=== PATIENT | female | born 1975 | race Caucasian/White ===

== ENCOUNTER 2018-01-29 00:29 | Inpatient (IN) | payer MEDICAID ==
[~2018-01-29] VITALS: Ht 165.1 cm; Wt 101.6 kg
[~2018-01-29 00:29] MED LIST: CALC500T31 PO; FERR-212 PO; PREN-385 PO
[2018-01-29 00:33] VITALS: BP 176/109
--- NOTE | 2018-01-29 00:38 | NUR ---
BIB DAUGHTER, PT PRESENTS TO ED WITH N/V WITH BURNING CHEST PAIN X3 HRS. PT STATES WAKING UP WITH EPIGASTRIC PAIN. TOOK PEPTO BISMOL AND DID NOT FIND RELIEF. VSS UPON ED ARRIVAL. HR EVEN AND REGULAR. NSR AT 65. POSITIONED IN BED WITH HOB ELEVATED. SIDE RAIL UP. ER MD AWARE. CONTINUE TO MONITOR.
--- NOTE | 2018-01-29 00:38 | NUR ---
PT AMBULATED TO BED 07
--- NOTE | 2018-01-29 00:40 | NUR ---
DR CABRAL AT BEDSIDE FOR EVALUATION.
[2018-01-29] MEDS ORDERED: NACL 0.9% 500 ML IV ONE (00:42)
[2018-01-29] MEDS ORDERED: KETOROLAC 30 MG/ML VIAL IVP ONE (00:45)
[2018-01-29] MEDS ORDERED: ONDANSETRON 4 MG/2 ML VIAL IVP ONE (00:45)
[2018-01-29 01:24] LABS: BASOPHILS % (AUTO) 0.3 % (0.0-2.0); EOSINOPHILS # (AUTO) 0.4 K/uL (0-0.4); HEMOGLOBIN 13.3 g/dL (12.0-16.0); LYMPHOCYTES # (AUTO) 3.2 K/uL (2.5-16.5); LYMPHOCYTES % (AUTO) 22.7 % (20.5-51.1); MEAN CORPUSCULAR HEMOGLOBIN 29 pg (27-31); MEAN CORPUSCULAR HGB CONC 33 g/dL (33-37); MEAN CORPUSCULAR VOLUME 88.2 fL (80-94); MONOCYTES % (AUTO) 7.1 % (1.7-9.3); NEUTROPHILS # (AUTO) 9.4 K/uL (1.8-7.7); NEUTROPHILS % (AUTO) 66.9 % (42.2-75.2); PLATELET COUNT (AUTO) 299 K/uL (140-450); RED BLOOD CELL COUNT(AUTO) 4.53 MIL/uL (4.20-5.40)
[2018-01-29 01:33] LABS: ANION GAP 14.4 (8-16); CARBON DIOXIDE 25.4 mmol/L (21-32); CREATININE 0.8 mg/dL (0.6-1.3); POTASSIUM 3.8 mmol/L (3.5-5.1)
--- NOTE | 2018-01-29 01:34 | NUR ---
PT STATES 8/10 PAIN. PAIN UNCHANGED AT THIS TIME. DR CABRAL NOTIFIED. VSS. CONTINUE TO MONITOR.
[2018-01-29 01:39] LABS: ALBUMIN 3.6 g/dL (3.4-5.0); TOTAL BILIRUBIN 0.2 mg/dL (0.0-1.0)
[2018-01-29] MEDS ORDERED: MORPHINE SULFATE 2 MG/ML SYR IVP ONE (02:00)
[2018-01-29] MEDS ORDERED: MORPHINE SULFATE 2 MG/ML SYR IVP PRN (02:05)
[2018-01-29] MEDS ORDERED: ACETAMINOPHEN 325 MG TAB PO PRN (02:05)
[2018-01-29] MEDS ORDERED: DOCUSATE SODIUM 100 MG GELCAP PO PRN (02:05)
[2018-01-29] MEDS ORDERED: ONDANSETRON 4 MG/2 ML VIAL IM/IVP PRN (02:05)
[2018-01-29] MEDS ORDERED: HYDROcodone/APAP 7.5/325 MG 1 TAB PO PRN (02:05)
[2018-01-29] MEDS ORDERED: MORPHINE SULFATE 4 MG/ML SYR ONE (02:08)
--- NOTE | 2018-01-29 02:22 | NUR ---
PT IN BED WITH VSS. POSITIONED FOR COMFORT. FAMILY AT BEDSIDE. CONTINUE TO MONITOR.
[2018-01-29 02:27] LABS: APPEARANCE,URINE SLIGHTLY HAZY (CLEAR); BLOOD, URINE TRACE (NEGATIVE); COLOR,URINE YELLOW (YELLOW); UGLUCOSE NEGATIVE (NEGATIVE)
[2018-01-29 02:28] LABS: BILIRUBIN,URINE NEGATIVE (NEGATIVE); LEUKOCYTE ESTERASE ,URINE NEGATIVE (NEGATIVE); NITRITE, URINE NEGATIVE (NEGATIVE)
[2018-01-29 02:30] LABS: PROTHROMBIN TIME 9.7 secs (10.8-13.4)
[2018-01-29 02:37] LABS: BARBITURATE, URINE NEG. ng/ml (NEG <=200); BENZODIAZEPINE, URINE NEG. ng/mL (NEG <=200); CANNABINOID, URINE NEG. ng/mL (NEG <=50); COCAINE, URINE NEG. ng/mL (NEG <=300); OPIATE, URINE NEG. ng/mL (NEG <=2000); PHENCYCLIDINE SCREEN,URINE NEG. ng/mL (NEG <=25)
[2018-01-29 02:40] LABS: RBC,URINE 3-10 (FEW) /HPF (0-5); WBC,URINE 0-5 (RARE) /HPF (0-5)
[2018-01-29 02:42] LABS: CHOL/HDL RATIO 4.8 (1-4.5); FREE T4 (FREE THYROXINE) 1.03 ng/dL (0.76-1.46); MAGNESIUM 1.9 mg/dL (1.8-2.4); PHOSPHORUS 2.5 mg/dL (2.5-4.9); THYROID STIMULATING HORMONE 2.66 uIU/mL (0.34-3.74)
[2018-01-29] MEDS ORDERED: DEXT 5% / NACL 0.45% 1,000 ML IV SCH (03:30)
--- NOTE | 2018-01-29 03:52 | NUR ---
REPORT GIVEN AND CARE TRANSFERED TO [facility] RN ROOM 104A. TRANSPORTED VIA GURNEY WITH VSS.
[2018-01-29 04:00] VITALS: BP 128/80
--- NOTE | 2018-01-29 04:00 | NUR ---
RECEIVED REPORT FROM [facility], FOR CONTINUITY OF CARE. PT ARRIVED IN [facility] AND AMBULATED FROM HALLWAY TO RESTROOM THEN BED WITH STEADY GAIT. PT IS A/OX4, ON ROOM AIR AND PRIMARILY USES FRISIAN. PT IS ABLE TO MAKE NEEDS KNOWN, ABLE TO FOLLOW COMMANDS. PT BREATHS EQUAL AND UNLABORED. PT SKIN IS INTACT. PT HAS A 20G IV TO LEFT AC, ASYMPTOMATIC AND INTACT. DISCUSSED PLAN OF CARE WITH PT, PT VERBALIZED UNDERSTANDING. OBTAINED MRSA SWAB AND SENT TO LAB. VITAL SIGNS WITHIN NORMAL LIMITS. PT STABLE, NO SIGNS OF DISTRESS NOTED AT THIS TIME. BED IN LOWEST POSITION, BED ALARM ON. CALL LIGHT WITHIN REACH, WILL CONTINUE TO MONITOR.
[2018-01-29] MEDS ORDERED: cefTRIAXone 1,000 MG VIAL ONE (04:24)
[2018-01-29] MEDS: metroNIDAZOLE 500 MG/NS PREMIX 100 ML IV SCH ×3 (04:29→22:12)
[2018-01-29] MEDS ORDERED: PNEUMOCOCCAL VACCINE 23 MCG/0.5 ML VIAL IMVAC SCH (05:10)
--- NOTE | 2018-01-29 05:30 | NUR ---
PT TOLERATED ROCEPHIN AND FLAGYL WELL, NO SIGNS/SYMPTOMS OF ALLERGIC REACTION.
--- NOTE | 2018-01-29 07:18 | NUR ---
ENDORSED P TO DAY SHIFT RN CHELO FOR CONTINUITY OF CARE, PT IN STABLE CONDITION.
--- NOTE | 2018-01-29 07:19 | NUR ---
RECEIVED BEDSIDE REPORT FROM PM SHIFT NURSE. PT ASLEEP, AROUSABLE BY AUDITORY STIMULI. DENIES ANY PAIN AT THIS TIME. CALL LIGHT WITHIN REACH.
[2018-01-29 08:00] VITALS: BP 112/79
[2018-01-29 08:13] LABS: BASOPHILS # (AUTO) 0.2 K/uL (0.00-0.22); BASOPHILS % (AUTO) 1.2 % (0.0-2.0); EOSINOPHILS # (AUTO) 0.4 K/uL (0-0.4); HEMATOCRIT 38.6 % (36-48); HEMOGLOBIN 12.8 g/dL (12.0-16.0); LYMPHOCYTES # (AUTO) 3.4 K/uL (2.5-16.5); LYMPHOCYTES % (AUTO) 26.2 % (20.5-51.1); MEAN CORPUSCULAR HEMOGLOBIN 29 pg (27-31); MEAN CORPUSCULAR HGB CONC 33 g/dL (33-37); MEAN CORPUSCULAR VOLUME 88.4 fL (80-94); MONOCYTES # (AUTO) 0.7 K/uL (0.8-1.0); MONOCYTES % (AUTO) 5.4 % (1.7-9.3); NEUTROPHILS # (AUTO) 8.3 K/uL (1.8-7.7); NEUTROPHILS % (AUTO) 64.2 % (42.2-75.2); PLATELET COUNT (AUTO) 280 K/uL (140-450); RED BLOOD CELL COUNT(AUTO) 4.37 MIL/uL (4.20-5.40); RED CELL DISTRIBUTION WIDTH 13.9 % (11.6-13.7); WHITE BLOOD COUNT (AUTO) 12.9 K/uL (4.8-10.8)
[2018-01-29] MEDS: NACL 0.9% 1,000 ML IV SCH ×2 (08:15→18:15)
[2018-01-29 08:17] LABS: ANION GAP 12.4 (8-16); CARBON DIOXIDE 25.8 mmol/L (21-32); CREATININE 0.6 mg/dL (0.6-1.3); POTASSIUM 4.2 mmol/L (3.5-5.1)
[2018-01-29] MEDS: LACTOBACILLUS RHAMNOSUS GG 1 EACH CAP PO SCH (08:22)
[2018-01-29 08:35] LABS: MAGNESIUM 2.1 mg/dL (1.8-2.4); PHOSPHORUS 3.1 mg/dL (2.5-4.9)
--- NOTE | 2018-01-29 08:38 | NUR ---
PATIENT HAS BEEN SCREENED AND CATEGORIZED MODERATE NUTRITION RISK. PATIENT WILL BE SEEN WITHIN 3-5 DAYS OF ADMISSION. 01/31/18 02/02/[address]
--- NOTE | 2018-01-29 09:50 | NUR ---
DAUGHTER AT BEDSIDE VISITING PT. PT LYING IN BED, AWAKE, RESPIRATIONS EVEN & UNLABORED, NO C/O PAIN. CALL LIGHT WITHIN REACH.
--- NOTE | 2018-01-29 10:15 | NUR ---
PT LEFT UNIT VIA W/C FOR [facility]IDA SCAN.
--- NOTE | 2018-01-29 12:29 | NUR ---
CAME BACK FROM HIDA SCAN & CT SCAN. PT ALERT, NO C/O PAIN, RESPIRATIONS EVEN & UNLABORED. CALL LIGHT WITHIN REACH.
--- NOTE | 2018-01-29 14:13 | NUR ---
PT ASLEEP, AROUSABLE BY AUDITORY STIMULI. NO C/O PAIN AT THIS TIME. RESPIRATIONS EVEN & UNLABORED. LEFT AC IV INTACT & ASYMPTOMATIC WITH ONGOING IVF INFUSION. OFFERED ASSISTANCE WITH ADL TASKS, PT STATES SHE IS DOING FINE FOR NOW.
[2018-01-29 16:00] VITALS: BP 132/82
--- NOTE | 2018-01-29 16:20 | NUR ---
PT REQUESTS FOR FOOD. PUDDING, JELLO, & APPLE JUICE GIVEN. INFORMED PT THAT DIETARY IS PREPARING FOR DINNER. PER PT, OK FOR SNACKS FOR NOW & WILL WAIT FOR DINNER TRAY. NO C/O PAIN AT THIS TIME. RESPIRATIONS EVEN & UNLABORED. CALL LIGHT WITHIN REACH.
--- NOTE | 2018-01-29 18:40 | NUR ---
PT LYING IN BED, AWAKE, DENIES ANY PAIN. LEFT AC IV ASYPMTOMATIC WITH ONGOING IVF INFUSION.
--- NOTE | 2018-01-29 19:10 | NUR ---
REPORT GIVEN TO PM SHIFT NURSE.
--- NOTE | 2018-01-29 19:11 | NUR ---
RECEIVED REPORT FROM DAY SHIFT RN, FOR CONTINUITY OF CARE.PT IS A/OX4, ON ROOM AIR AND PRIMARILY USES ENGLISH. PT IS ABLE TO MAKE NEEDS KNOWN, ABLE TO FOLLOW COMMANDS. PT BREATHS EQUAL AND UNLABORED. PT IS ABLE TO AMBULATE WITH STEADY GAIT AND SKIN IS INTACT. PT HAS A 20G IV TO LEFT AC, ASYMPTOMATIC AND INTACT. DISCUSSED PLAN OF CARE WITH PT, PT VERBALIZED UNDERSTANDING. VITAL SIGNS WITHIN NORMAL LIMITS. PT STABLE, NO SIGNS OF DISTRESS NOTED AT THIS TIME. BED IN LOWEST POSITION, BED ALARM ON. CALL LIGHT WITHIN REACH, WILL CONTINUE TO MONITOR.
[2018-01-30] VITALS: BP 115/62
--- NOTE | 2018-01-30 | NUR ---
VITAL SIGNS WITHIN NORMAL LIMITS. PT STABLE, NO SIGNS OF DISTRESS NOTED AT THIS TIME. BED IN LOWEST POSITION, BED ALARM ON. CALL LIGHT WITHIN REACH, WILL CONTINUE TO MONITOR.
[2018-01-30] MEDS: NACL 0.9% 1,000 ML IV SCH (04:33)
[2018-01-30] MEDS: metroNIDAZOLE 500 MG/NS PREMIX 100 ML IV SCH (05:55)
[2018-01-30 06:23] LABS: T4 (THYROXINE) 9.6 ug/dL (4.5-12.0)
[2018-01-30 07:23] LABS: BASOPHILS % (AUTO) 0.4 % (0.0-2.0); EOSINOPHILS # (AUTO) 0.4 K/uL (0-0.4); EOSINOPHILS % (AUTO) 4.8 % (0.0-4.0); HEMATOCRIT 39.2 % (36-48); HEMOGLOBIN 13.1 g/dL (12.0-16.0); LYMPHOCYTES # (AUTO) 3.1 K/uL (2.5-16.5); MEAN CORPUSCULAR HEMOGLOBIN 30 pg (27-31); MEAN CORPUSCULAR HGB CONC 34 g/dL (33-37); MEAN CORPUSCULAR VOLUME 88.8 fL (80-94); MONOCYTES # (AUTO) 0.6 K/uL (0.8-1.0); MONOCYTES % (AUTO) 7.1 % (1.7-9.3); NEUTROPHILS # (AUTO) 4.9 K/uL (1.8-7.7); NEUTROPHILS % (AUTO) 53.7 % (42.2-75.2); PLATELET COUNT (AUTO) 278 K/uL (140-450); RED BLOOD CELL COUNT(AUTO) 4.41 MIL/uL (4.20-5.40); RED CELL DISTRIBUTION WIDTH 14.1 % (11.6-13.7)
--- NOTE | 2018-01-30 07:35 | NUR ---
ENDORSED PT TO DAY SHIFT RN CHELO FOR CONTINUITY OF CARE. PT IN STABLE CONDITION.
--- NOTE | 2018-01-30 07:36 | NUR ---
RECEIVED BEDSIDE REPORT FROM PM SHIFT NURSE. PT LYING IN BED, AWAKE, VERBALLY RESPONSIVE. NO C/O PAIN. CALL LIGHT WITHIN REACH. LEFT AC IV ASYPMTOMATIC WITH ONGOING IVF INFUSION.
[2018-01-30 07:41] LABS: ANION GAP 11.7 (8-16); CARBON DIOXIDE 26.1 mmol/L (21-32); CREATININE 0.6 mg/dL (0.6-1.3); POTASSIUM 3.8 mmol/L (3.5-5.1)
[2018-01-30 07:52] LABS: MAGNESIUM 2.2 mg/dL (1.8-2.4); PHOSPHORUS 3.7 mg/dL (2.5-4.9)
[2018-01-30 08:00] VITALS: BP 110/70
[2018-01-30] MEDS: LACTOBACILLUS RHAMNOSUS GG 1 EACH CAP PO SCH (08:36)
--- NOTE | 2018-01-30 09:15 | NUR ---
PT SITTING UP IN BED, NO SIGNS OF DISTRES, NO C/O PAIN OR DISCOMFORT. OFFERED TO ASSIST WITH ADL TASKS, PT REFUSED & STATES SHE IS DOING FINE RIGHT NOW. CALL LIGHT WITHIN REACH.
[2018-01-30] MEDS ORDERED: IBUP-2213 PO (09:16)
[2018-01-30] MEDS ORDERED: INFLUENZA VIRUS VACCINE QUAD 0.5 ML SYR IMVAC PRN (10:00)
--- NOTE | 2018-01-30 12:24 | NUR ---
DISCHARGE WRITTEN & VERBAL INSTRUCTIONS GIVEN TO PT. PT'S DAUGHTER ON PT'S [place] TRANSLATING FOR PT. LEFT AC IV DISCONTINUED. PER DAUGHTER, SHE WILL COME TO [employer] BODY PT IN ABOUT AN HOUR. PT ABLE TO CHANGE INTO OWN CLOTHES INDEPENDENTLY. CALL LIGHT WITHIN REACH.
--- NOTE | 2018-01-30 13:00 | NUR ---
PT DISCHARGED AT THIS TIME. ABLE TO AMBULATE OUT OF UNIT WITH STEADY GAIT, ACCOMPANIED BY SPOUSE. ALL BELONGINGS WITH PT.
== END 2018-01-30 13:00 | disposition home or self-care (01) ==
LOC: MED 00:29 → MTU 02:08
PROVIDERS: ADMIT General Practice; ATTEND General Practice
PROC: 3E0234Z Introduction of Serum, Toxoid and Vaccine into Muscle, Percutaneous Approach (ICD-10-PCS; principal; 2018-01-30)
DX: K80.20 Calculus of gallbladder without cholecystitis without obstruction (principal); K72.90 Hepatic failure, unspecified without coma; K76.0 Fatty (change of) liver, not elsewhere classified; E66.9 Obesity, unspecified; R74.0 Nonspecific elevation of levels of transaminase and lactic acid dehydrogenase [LDH]; E78.5 Hyperlipidemia, unspecified; J45.909 Unspecified asthma, uncomplicated; R73.9 Hyperglycemia, unspecified; E78.1 Pure hyperglyceridemia; F43.9 Reaction to severe stress, unspecified; Z68.37 Body mass index [BMI] 37.0-37.9, adult; Z90.721 Acquired absence of ovaries, unilateral; Z23 Encounter for immunization; Z91.09 Other allergy status, other than to drugs and biological substances; Z82.49 Family history of ischemic heart disease and other diseases of the circulatory system; Z71.3 Dietary counseling and surveillance
CPT/HCPCS: 36415; 71045; 76705; 78445; 80048; 80053; 80305; 81001; 81025; 82140; 82150; 82550; 83036; 83605; 83615; 83690; 83735; 83880; 84100; 84436; 84439; 84443; 85025; 85610; 85730; 87040; 87081; 87086; 90658; 96361; 96374; 96375; 99285; A9510; J0696; J1885; J2270; J2405; J3490; J7030; J7060; Q0092

== ENCOUNTER 2020-09-21 20:35 | Emergency (ER) | payer MEDICAID ==
[~2020-09-21] VITALS: Ht 167.6 cm; Wt 81.6 kg
[~2020-09-21 20:35] MED LIST changes: -CALC500T31 PO; -FERR-212 PO; +IBUP-2213 PO; -PREN-385 PO
[2020-09-21 20:49] VITALS: BP 133/92
--- NOTE | 2020-09-21 20:49 | NUR ---
TO BED AMBULATORY
--- NOTE | 2020-09-21 21:00 | NUR ---
PATIENT BIB SELF FOR C/O TOOTH PAIN S/P ORAL SURGERY TODAY. PATIENT STATES TEETH ON THE BOTTOM R SIDE OF JAW WERE REMOVED. PER PATIENT PAIN REMAINS 10/10 EVEN AFTER TAKING IBUPROFEN 800MG X 2 TABS. PATIENT STATES PAIN IS THROBBING AND SORE. REDNESS NOTRED, BLEEDING CONTROLLED. MEDHX: DENIES NKA
--- NOTE | 2020-09-21 21:12 | NUR ---
ERMD AT BEDSIDE FOR MEDICAL EVALUATION.
[2020-09-21] MEDS ORDERED: BUPIVACAINE-MPF 0.25% 30 ML VIAL INJ ONE (21:20)
[2020-09-21] MEDS ORDERED: LIDOCAINE MPF 2% 100 MG/5 ML VIAL INJ ONE (21:50)
[2020-09-21] MEDS ORDERED: DEXTROSE 50% 50 ML SYR IVP ONE (22:04)
--- NOTE | 2020-09-21 22:21 | NUR ---
ERMD AT BEDSIDE.
[2020-09-21] MEDS ORDERED: HYDROcodone/APAP 5/325 MG 1 TAB TAB PO ONE ×2 (22:30→22:40)
--- NOTE | 2020-09-21 22:32 | NUR ---
PATIENT STATES PAIN HAS REDUCED FROM 10/10 TO 3/10.
--- NOTE | 2020-09-21 22:33 | NUR ---
PULLED DEXTROSE 50% 50ML SYR FOR WRONG PATIENT. NOT ADMINISTERED TO THIS PATIENT.
[2020-09-21 22:50] VITALS: BP 134/67
--- NOTE | 2020-09-21 22:50 | NUR ---
Patient discharged with v/s stable. Written and verbal after care instructions given and explained. Patient verbalized understanding. Ambulatory with steady gait. All questions addressed prior to discharge. Advised to follow up with PMD.
[2020-09-21] MEDS ORDERED: ACET-9525 PO (22:59)
== END 2020-09-21 22:50 | disposition home or self-care (01) ==
LOC: MED 20:35
DX: K08.89 Other specified disorders of teeth and supporting structures (principal); Z79.899 Other long term (current) drug therapy
CPT/HCPCS: 99283; J2001; J3490

== ENCOUNTER 2022-01-01 05:35 | Emergency (ER) | payer SELFPAY ==
[~2022-01-01] VITALS: Ht 165.1 cm; Wt 91.2 kg
[~2022-01-01 05:35] MED LIST changes: +ACET-9525 PO
[2022-01-01 05:41] VITALS: BP 137/52
--- NOTE | 2022-01-01 05:49 | NUR ---
Patient ambulated to bed 3.
--- NOTE | 2022-01-01 06:18 | NUR ---
Dr. Cai examining patient.
[2022-01-01] MEDS ORDERED: KETOROLAC 30 MG/ML VIAL IVP ONE (06:25)
[2022-01-01] MEDS ORDERED: NACL 0.9% 1,000 ML IV ONE (06:25)
[2022-01-01] MEDS ORDERED: ONDANSETRON 4 MG/2 ML VIAL IVP ONE (06:25)
[2022-01-01] MEDS ORDERED: DICYCLOMINE HCL LIQUID 20 MG, ALUMINUM HYD/MAG/SIMETHICONE 30 ML, LIDOCAINE VISCOUS 2% ... PO ONE ×3 (06:25)
[2022-01-01] MEDS ORDERED: LOPE-289 PO (06:36)
[2022-01-01] MEDS ORDERED: IBUP-2213 PO (06:36)
[2022-01-01] MEDS ORDERED: OMEP40EC24 PO (06:36)
[2022-01-01] MEDS ORDERED: ONDA8TAB87 PO (06:36)
--- NOTE | 2022-01-01 06:38 | NUR ---
Patient A/Ox4, chest rise and fall symmetrical, resting comfortably in bed, no s/s of distress.
[2022-01-01] MEDS ORDERED: ALUMINUM HYD/MAG/SIMETHICONE 30 ML UDC ONE (06:41)
[2022-01-01] MEDS ORDERED: DICYCLOMINE HCL LIQUID 10 MG/5 ML UDC ONE (06:41)
[2022-01-01 07:37] VITALS: BP 123/78
== END 2022-01-01 06:49 | disposition home or self-care (01) ==
LOC: MED 05:35
DX: R10.13 Epigastric pain (principal); Z98.890 Other specified postprocedural states
CPT/HCPCS: 81002; 96361; 96374; 96375; 99284; J1885; J2405; J7030

== ENCOUNTER 2022-09-24 01:31 | Emergency (ER) | payer MEDICAID ==
[~2022-09-24] VITALS: Ht 165.1 cm; Wt 102.1 kg
[~2022-09-24 01:31] MED LIST changes: +LOPE-289 PO; +OMEP40EC24 PO; +ONDA8TAB87 PO
[2022-09-24 01:36] VITALS: BP 132/82; PULSE 60; RESP 20; TEMP 98; O2SAT 99
[2022-09-24] MEDS ORDERED: KETOROLAC 30 MG/ML VIAL IVP ONE (02:15)
[2022-09-24] MEDS ORDERED: NACL 0.9% 1,000 ML IV SCH (02:15)
[2022-09-24 02:52] LABS: BASOPHILS # (AUTO) 0.1 K/uL (0.00-0.22); BASOPHILS % (AUTO) 0.7 % (0.0-2.0); EOSINOPHILS # (AUTO) 0.4 K/uL (0-0.4); HEMATOCRIT 35.6 % (36-48); HEMOGLOBIN 11.8 g/dL (12.0-16.0); LYMPHOCYTES # (AUTO) 3.4 K/uL (2.5-16.5); LYMPHOCYTES % (AUTO) 31.6 % (20.5-51.1); MEAN CORPUSCULAR HEMOGLOBIN 28 pg (27-31); MEAN CORPUSCULAR HGB CONC 33 g/dL (33-37); MONOCYTES # (AUTO) 0.9 K/uL (0.8-1.0); MONOCYTES % (AUTO) 8.2 % (1.7-9.3); NEUTROPHILS # (AUTO) 5.9 K/uL (1.8-7.7); NEUTROPHILS % (AUTO) 55.5 % (42.2-75.2); PLATELET COUNT (AUTO) 316 K/uL (140-450); RED BLOOD CELL COUNT(AUTO) 4.29 MIL/uL (4.20-5.40); RED CELL DISTRIBUTION WIDTH 15.3 % (11.6-13.7); WHITE BLOOD COUNT (AUTO) 10.7 K/uL (4.8-10.8)
--- NOTE | 2022-09-24 02:53 | NUR ---
Dr. Ruffin examining patient.
[2022-09-24] MEDS ORDERED: ONDANSETRON 4 MG/2 ML VIAL IVP ONE (03:00)
[2022-09-24] MEDS ORDERED: MORPHINE SULFATE 4 MG/ML SYR IVP ONE (03:00)
[2022-09-24] MEDS ORDERED: FAMOTIDINE 20 MG/2 ML VIAL IVP ONE (03:00)
--- NOTE | 2022-09-24 03:03 | NUR ---
X-Ray at bedside.
[2022-09-24] MEDS ORDERED: DICYCLOMINE HCL LIQUID 20 MG, ALUMINUM HYD/MAG/SIMETHICONE 30 ML, LIDOCAINE VISCOUS 2% ... PO ONE ×3 (03:20)
[2022-09-24 03:22] LABS: ALBUMIN 3.5 g/dL (3.4-5.0); ANION GAP 13.1 (8-16); CARBON DIOXIDE 26.6 mmol/L (21-32); CREATININE 0.7 mg/dL (0.6-1.3); POTASSIUM 3.7 mmol/L (3.5-5.1); TOTAL BILIRUBIN 0.2 mg/dL (0.0-1.0)
[2022-09-24] MEDS ORDERED: ALUMINUM HYD/MAG/SIMETHICONE 30 ML UDC ONE (03:28)
[2022-09-24] MEDS ORDERED: DICYCLOMINE HCL LIQUID 10 MG/5 ML UDC ONE (03:28)
[2022-09-24 03:45] LABS: APPEARANCE,URINE CLEAR (CLEAR); BILIRUBIN,URINE NEGATIVE (NEGATIVE); BLOOD, URINE TRACE-I (NEGATIVE); COLOR,URINE YELLOW (YELLOW); LEUKOCYTE ESTERASE ,URINE NEGATIVE (NEGATIVE); NITRITE, URINE NEGATIVE (NEGATIVE); PH,URINE 6.5 (5.0-9.0); UGLUCOSE NEGATIVE (NEGATIVE)
[2022-09-24] MEDS ORDERED: ONDA-188 PO (04:34)
[2022-09-24] MEDS ORDERED: SUCR1TAB35 PO (04:34)
[2022-09-24] MEDS ORDERED: PANT40EC PO (04:34)
[2022-09-24 05:15] VITALS: BP 144/67; PULSE 76; RESP 18; TEMP 98.2; O2SAT 97
--- NOTE | 2022-09-24 05:19 | NUR ---
Patient discharged with v/s stable. Written and verbal after care instructions given and explained. Patient alert, oriented and verbalized understanding of instructions. Ambulatory with steady gait. All questions addressed prior to discharge. ID band removed. Patient advised to follow up with PMD. Rx of Sucralfate, Protonix, Zofran given. Patient educated on indication of medication including possible reaction and side effects. Opportunity to ask questions provided and answered.
== END 2022-09-24 05:15 | disposition home or self-care (01) ==
LOC: MED 01:31
DX: K29.00 Acute gastritis without bleeding (principal); R94.31 Abnormal electrocardiogram [ECG] [EKG]; Z79.899 Other long term (current) drug therapy
CPT/HCPCS: 36415; 71045; 80053; 81003; 81025; 82150; 83690; 84484; 85025; 93005; 96361; 96374; 96375; 99285; J1885; J2270; J2405; J3490; J7030; Q0092